=== PATIENT | female | born 1990 | race Caucasian/White ===

== ENCOUNTER 2020-06-27 18:24 | Emergency (ER) | payer OTHER, MEDICAID ==
[~2020-06-27] VITALS: Ht 165.1 cm; Wt 60.3 kg
[~2020-06-27 18:24] MED LIST: CELEXA; HYDROCODON-ACE1 EAC8; LORTAB 5 MG/5001 TAB PO; MEDROLDOSEPACK; NOHOMEMEDICATIONS; PERCOCET 5-3251 EACH PO; VICODIN 5-5001 EACH PO; XANAX XR1 MG; ZANAFLEX4 M1
[2020-06-27] MEDS ORDERED: NORCO 5-325 TA1 EAC2 PO (20:02)
[2020-06-27] MEDS ORDERED: DOXYCYCLINE 10100 MG PO (20:02)
[2020-06-27] MEDS ORDERED: IBUPROFEN 800800 M1 PO (20:02)
[2020-06-27 20:40] VITALS: BP 103/66
== END 2020-06-27 20:41 | disposition home or self-care (01) ==
LOC: M.ERS 18:24
DX: L03.312 Cellulitis of back [any part except buttock and flank] (principal)

== ENCOUNTER 2020-11-25 21:18 | Emergency (ER) | payer OTHER, MEDICAID ==
[~2020-11-25] VITALS: Ht 165.1 cm; Wt 59.9 kg
[~2020-11-25 21:18] MED LIST changes: +DOXYCYCLINE 10100 MG PO; +IBUPROFEN 800800 M1 PO; +NORCO 5-325 TA1 EAC2 PO
[2020-11-25] MEDS ORDERED: CENTANY30 GM TOP (21:27)
[2020-11-25 21:37] VITALS: BP 133/82
== END 2020-11-25 21:37 | disposition home or self-care (01) ==
LOC: M.ERS 21:18
DX: L01.00 Impetigo, unspecified (principal)